=== PATIENT | female | born 1975 | race Two or more races ===

== ENCOUNTER 2016-09-26 14:52 | Emergency (ER) | payer OTHER ==
[~2016-09-26] VITALS: Ht 157.5 cm; Wt 104.3 kg
[~2016-09-26 14:52] MED LIST: DICY20TA30 PO; ONDA4TAB7 PO
[2016-09-26 15:00] VITALS: BP 126/78
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
--- NOTE | 2016-09-26 16:36 | RAD ---
Left foot, 3 views, 09/26/2016: History: Fall, pain No acute fracture or dislocation is identified. There are mild scattered degenerative changes. A small soft tissue defect is noted along the medial aspect of the great toe. IMPRESSION: No acute bony abnormality is detected.
[2016-09-26] MEDS ORDERED: DIPHTH,PERTUSS(ACELL),TET TOX 0.5 ML DISP.SYRIN. VAX IM ONE (16:45)
[2016-09-26] MEDS ORDERED: NEOMY/BACITR/POLYMYXIN OINT PACKET. TP ONE (16:45)
[2016-09-26] MEDS ORDERED: HYDROCODONE/APAP 5/325MG TABLET. PO ONE (16:45)
[2016-09-26 17:30] LABS: BASO % 0 % (0-3); EOS % 1 % (0-3); HEMATOCRIT 43.8 % (36.0-47.0); HEMOGLOBIN 14.3 g/dL (12.0-15.5); LYMPH # 1.5 x10^3/uL (1.0-4.8); LYMPH % 15 % (24-48); MEAN CORPUSCULAR HEMOGLOBIN 29 pg (25-35); MEAN CORPUSCULAR HGB CONC 33 g/dL (31-37); MEAN CORPUSCULAR VOLUME 89 fL (79-100); MONO % 5 % (0-9); NEUT % 79 % (31-73); PLATELET COUNT 244 x10^3/uL (140-400); RED BLOOD COUNT 4.93 x10^6/uL (3.50-5.40); WHITE BLOOD COUNT 9.4 x10^3/uL (4.0-11.0)
[2016-09-26 17:37] LABS: CALCIUM 9.5 mg/dL (8.5-10.1); CREATININE 0.6 mg/dL (0.6-1.0); GFR 109.1; POTASSIUM 3.7 mmol/L (3.5-5.1)
--- NOTE | 2016-09-26 18:30 | RAD ---
PROCEDURE CT scan of the cervical spine without contrast 09/26/2016 HISTORY Neck pain post fall. TECHNIQUE Unenhanced contiguous, 0.625 millimeter axial sections were obtained through the cervical spine. 3 millimeter reconstructed sagittal, axial and coronal images were obtained. One or more of the following individualized dose reduction techniques were utilized for this study: 1. Automated exposure control. 2. Adjustment of the mA and/or kV according to patient size. 3. Use of iterative reconstruction technique. FINDINGS Sagittal and coronal reconstructed images demonstrate very mild lateral curvature of the cervical spine convex to the left. There is slight reversal of normal cervical lordosis. No fracture or subluxation of the cervical vertebrae is seen. IMPRESSION No fracture or subluxation of the cervical vertebrae is seen. Electronically signed by: Brandon Gibson MD (Sep 26, 2016 18:29:50)
--- NOTE | 2016-09-26 18:39 | RAD ---
PROCEDURE CT scan of the chest without contrast 09/26/2016 HISTORY Fall with mid chest pain. TECHNIQUE Unenhanced contiguous, 5 millimeter axial sections were obtained through the chest and upper abdomen. One or more of the following individualized dose reduction techniques were utilized for this study: 1. Automated exposure control. 2. Adjustment of the mA and/or kV according to patient size. 3. Use of iterative reconstruction technique. FINDINGS The heart and thoracic aorta are within normal limits. No mediastinal hematoma is seen. Small calcified hilar and mediastinal lymph nodes are noted. Dependent subsegmental atelectasis is seen involving both lungs. Small calcified granulomas are seen involving both lower lobes. No area of consolidation is seen. No pneumothorax or pleural effusion is noted. Images through the upper abdomen are within normal limits. Degenerative changes are seen involving the thoracic spine. The osseous structures are grossly intact. IMPRESSION No acute abnormality is seen. Electronically signed by: Brandon Gibson MD (Sep 26, 2016 18:38:30)
[2016-09-26] MEDS ORDERED: NAPR375T3 PO (18:54)
[2016-09-26] MEDS ORDERED: HYDR-971 PO (18:54)
--- NOTE | 2016-09-27 06:23 | EKG ---
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
== END 2016-09-26 19:00 | disposition home or self-care (01) ==
LOC: ER 14:52
DX: S90.412A Abrasion, left great toe, initial encounter (principal); S10.91XA Abrasion of unspecified part of neck, initial encounter; R07.89 Other chest pain; W18.39XA Other fall on same level, initial encounter; Y93.89 Activity, other specified; Y92.481 Parking lot as the place of occurrence of the external cause; Y99.8 Other external cause status
CPT/HCPCS: 36415; 71250; 72125; 73630; 80048; 81025; 84484; 85027; 90471; 90715; 93005; 99285-25

== ENCOUNTER 2017-03-18 19:07 | Emergency (ER) | payer OTHER ==
[~2017-03-18] VITALS: Ht 160 cm; Wt 104.3 kg
[~2017-03-18 19:07] MED LIST changes: +HYDR-971 PO; +NAPR375T3 PO
[2017-03-18 20:17] LABS: BILIRUBIN,URINE NEGATIVE (NEG); GLUCOSE,URINE NEGATIVE (NEG); NITRITE,URINE NEGATIVE (NEG); PH,URINE 6.5; PROTEIN,URINE NEGATIVE (NEG-TRACE); UROBILINOGEN,URINE 0.2 mg/dL (0.2 mg/dL)
[2017-03-18 20:22] LABS: BACTERIA,URINE FEW /HPF (0-FEW); NEG OBC UR NEG; POS OBC UR POS; RBC,URINE 0 /HPF (0-2); SQUAMOUS EPITHELIAL CELL,UR MOD /LPF; WBC,URINE OCC /HPF (0-4); YEAST,URINE PRESENT /HPF
[2017-03-18] MEDS ORDERED: IV NORMAL SALINE 1000ML BAG 1,000 ML IV SCH (21:05)
[2017-03-18] MEDS ORDERED: diphenhydrAMINE 50 MG/ML VIAL IVP ONE (21:15)
[2017-03-18] MEDS ORDERED: KETOROLAC TROMETHAMINE 30 MG/ML INJ. IV ONE (21:15)
[2017-03-18] MEDS ORDERED: PROCHLORPERAZINE 10 MG/2 ML VIAL. IV ONE (21:15)
[2017-03-18 21:16] LABS: BASO # 0.1 x10^3/uL (0.0-0.2); BASO % 1 % (0-3); EOS % 2 % (0-3); HEMATOCRIT 41.1 % (36.0-47.0); HEMOGLOBIN 13.6 g/dL (12.0-15.5); LYMPH # 3.2 x10^3/uL (1.0-4.8); LYMPH % 40 % (24-48); MEAN CORPUSCULAR HEMOGLOBIN 29 pg (25-35); MEAN CORPUSCULAR HGB CONC 33 g/dL (31-37); MEAN CORPUSCULAR VOLUME 88 fL (79-100); MONO % 7 % (0-9); NEUT % 50 % (31-73); PLATELET COUNT 243 x10^3/uL (140-400); RED BLOOD COUNT 4.66 x10^6/uL (3.50-5.40); RED CELL DISTRIBUTION WIDTH 13.7 % (11.5-14.5)
[2017-03-18 21:20] VITALS: BP 127/77
[2017-03-18 21:27] LABS: CALCIUM 9.3 mg/dL (8.5-10.1); CREATININE 0.7 mg/dL (0.6-1.0); GFR 91.3; POTASSIUM 3.6 mmol/L (3.5-5.1)
[2017-03-18 21:33] LABS: ALBUMIN 3.4 g/dL (3.4-5.0); ALBUMIN/GLOBULIN RATIO 0.8 (1.0-1.7); TOTAL BILIRUBIN 0.2 mg/dL (0.2-1.0); TOTAL PROTEIN 7.6 g/dL (6.4-8.2)
[2017-03-18] MEDS ORDERED: CYCL10TA2 PO (22:55)
[2017-03-18] MEDS ORDERED: NAPR500T PO (22:55)
--- NOTE | 2017-03-18 22:55 | PHYS DOC ---
Past Medical History Past Medical History: No Pertinent History Past Surgical History: No Surgical History Alcohol Use: None Drug Use: None Adult General Chief Complaint Chief Complaint: HEADACHE HPI HPI Patient is a 41 year old female who presents with complaint of headache. Patient states that she is had headaches for the past 3 days. Patient states that the symptoms started in her forehead and radiate back towards the top of her neck. Patient denies any associated fever or vision changes with her symptoms. The patient states she took Tylenol with no relief in symptoms. Patient also states that she has had increasing fatigue. Patient denies any known medical problems and is not currently on any medications. Patient denies nausea, vomiting, shortness of breath, or acute chest pain. Patient rates her pain as 10 out of 10. Review of Systems Review of Systems Constitutional: Denies fever or chills [] Eyes: Denies change in visual acuity, redness, or eye pain [] HENT: Denies nasal congestion or sore throat [] Respiratory: Denies cough or shortness of breath [] Cardiovascular: Denies chest pain or edema [] GI: Denies abdominal pain, nausea, vomiting, bloody stools or diarrhea [] : Denies dysuria or hematuria [] Musculoskeletal: Neck pain [] Integument: Denies rash or skin lesions [] Neurologic: Headache, denies focal weakness or sensory changes [] Current Medications Current Medications Current Medications Medications (Trade) Dose Ordered Sig/Miguel Start Time Stop Time Status Last Admin Dose Admin Diphenhydramine HCl (Benadryl) 25 mg 1X ONCE 03/18/17 21:15 03/18/17 21:16 DC 03/18/17 21:21 25 MG Ketorolac Tromethamine (Toradol) 30 mg 1X ONCE 03/18/17 21:15 03/18/17 21:16 DC 03/18/17 21:21 30 MG Prochlorperazine Edisylate (Compazine) 10 mg 1X ONCE 03/18/17 21:15 03/18/17 21:16 DC 03/18/17 21:21 10 MG Sodium Chloride 1,000 ml @ 1,000 mls/hr Q1H 03/18/17 21:05 03/18/17 22:04 DC 03/18/17 21:20 1,000 MLS/HR Allergies Allergies Allergies Coded Allergies Type Severity Reaction Last Updated Verified No Known Drug Allergies 03/26/14 No Physical Exam Physical Exam Constitutional: Alert, afebrile, appears in mild discomfort. [] HENT: Normocephalic, atraumatic, bilateral external ears normal, oropharynx moist, no oral exudates, nose normal. [] Eyes: PERRLA, EOMI, conjunctiva normal, no discharge. [] Neck: No midline tenderness, mild bilateral paraspinous muscle tenderness to palpation, full range of motion present, negative Kernig, negative Brudzinski. [ ] Cardiovascular:Heart rate regular rhythm, no murmur [] Lungs & Thorax: Bilateral breath sounds clear to auscultation [] Abdomen: Bowel sounds normal, soft, no tenderness, no masses, no pulsatile masses. [] Skin: Warm, dry, no erythema, no rash. [] Back: No tenderness, no CVA tenderness. [] Extremities: No tenderness, no cyanosis, no clubbing, ROM intact, no edema. [] Neurologic: Alert and oriented X 3, normal motor function, normal sensory function, no focal deficits noted. [] Current Patient Data Vital Signs Vital Signs Date Time Temp Pulse Resp B/P (MAP) Pulse Ox O2 Delivery O2 Flow Rate FiO2 03/18/17 19:40 98.1 97 20 121/73 (89) 98 Room Air 98.1 Lab Values Laboratory Tests Test 03/18/17 19:02 03/18/17 19:45 03/18/17 20:15 POC Urine HCG, Qualitative Hcg negative (Negative) Urine Collection Type Unknown Urine Color Yellow Urine Clarity Clear Urine pH 6.5 Urine Specific [place] 1.010 Urine Protein Negative mg/dL (NEG-TRACE) Urine Glucose (UA) Negative mg/dL (NEG) Urine Ketones (Stick) Negative mg/dL (NEG) Urine Blood Negative (NEG) Urine Nitrite Negative (NEG) Urine Bilirubin Negative (NEG) Urine Urobilinogen Dipstick 0.2 mg/dL (0.2 mg/dL) Urine Leukocyte Esterase Trace (NEG) Urine RBC 0 /HPF (0-2) Urine WBC Occ /HPF (0-4) Urine Squamous Epithelial Cells Mod /LPF Urine Bacteria Few /HPF (0-FEW) Urine Yeast Present /HPF Urine Test Negative (NEG) White Blood Count 8.0 x10^3/uL (4.0-11.0) Red Blood Count 4.66 x10^6/uL (3.50-5.40) Hemoglobin 13.6 g/dL (12.0-15.5) Hematocrit 41.1 % (36.0-47.0) Mean Corpuscular Volume 88 fL (79-100) Mean Corpuscular Hemoglobin 29 pg (25-35) Mean Corpuscular Hemoglobin Concent 33 g/dL (31-37) Red Cell Distribution Width 13.7 % (11.5-14.5) Platelet Count 243 x10^3/uL (140-400) Neutrophils (%) (Auto) 50 % (31-73) Lymphocytes (%) (Auto) 40 % (24-48) Monocytes (%) (Auto) 7 % (0-9) Eosinophils (%) (Auto) 2 % (0-3) Basophils (%) (Auto) 1 % (0-3) Neutrophils # (Auto) 4.0 x10^3uL (1.8-7.7) Lymphocytes # (Auto) 3.2 x10^3/uL (1.0-4.8) Monocytes # (Auto) 0.6 x10^3/uL (0.0-1.1) Eosinophils # (Auto) 0.2 x10^3/uL (0.0-0.7) Basophils # (Auto) 0.1 x10^3/uL (0.0-0.2) Sodium Level 140 mmol/L (136-145) Potassium Level 3.6 mmol/L (3.5-5.1) Chloride Level 102 mmol/L (98-107) Carbon Dioxide Level 30 mmol/L (21-32) Anion Gap 8 (6-14) Blood Urea Nitrogen 12 mg/dL (7-20) Creatinine 0.7 mg/dL (0.6-1.0) Estimated GFR (Cockcroft-Gault) 91.3 BUN/Creatinine Ratio 17 (6-20) Glucose Level 134 mg/dL (70-99) H Calcium Level 9.3 mg/dL (8.5-10.1) Total Bilirubin 0.2 mg/dL (0.2-1.0) Aspartate Amino Transferase (AST) 15 U/L (15-37) Alanine Aminotransferase (ALT) 23 U/L (14-59) Alkaline Phosphatase 95 U/L (46-116) Total Protein 7.6 g/dL (6.4-8.2) Albumin 3.4 g/dL (3.4-5.0) Albumin/Globulin Ratio 0.8 (1.0-1.7) L Laboratory Tests 03/18/17 20:15 Laboratory Tests 03/18/17 20:15 EKG EKG Not performed [] Radiology/Procedures Radiology/Procedures Not performed [] Course & Med Decision Making Course & Med Decision Making Pertinent Labs and Imaging studies reviewed. (See chart for details) Patient was given IV fluids, Benadryl, Compazine, and Toradol in the emergency department. On reevaluation, patient states her symptoms have significantly improved at this time. The patient will be prescribed Flexeril and naproxen for continued treatment of symptoms. The patient's symptoms appear consistent with tension type headache. The patient has an appointment on March 30 with her primary physician. I recommended that she keep this appointment as scheduled. Recommended return emergency department for any worsening symptoms. Patient voiced understanding and in agreement with treatment plan. Dragon Disclaimer Dragon Disclaimer This electronic medical record was generated, in whole or in part, using a voice recognition dictation system. Departure Departure Impression: Primary Impression: Headache Disposition: 01 HOME, SELF-CARE Condition: IMPROVED Referrals: UNKNOWN PCP NAME (PCP) Patient Instructions: General Headache Without Cause Additional Instructions: Follow-up with your primary doctor on March 30 as scheduled. Return to emergency department for any worsening symptoms. Scripts Cyclobenzaprine Hcl (CYCLOBENZAPRINE HCL) 10 Mg Tablet 1 TAB PO TID Y for MUSCLE PAIN, #30 TAB Prov: CRYSTAL GAMINO MD 03/18/17 Naproxen (NAPROSYN) 500 Mg Tablet 1 TAB PO BID, #20 TAB 0 Refills Prov: CRYSTAL GAMINO MD 03/18/17 Problem Qualifiers Primary Impression: Headache Headache type: tension-type Headache chronicity pattern: acute headache Intractability: not intractable Qualified Codes: G44.209 - Tension-type headache, unspecified, not intractable CRYSTAL GAMINO MD Mar 18, 2017 22:55
== END 2017-03-18 23:21 | disposition home or self-care (01) ==
LOC: ER 19:07
DX: R51 Headache (principal)
CPT/HCPCS: 36415; 80053; 81001; 81025; 85025; 87086; 96361; 96374; 96375; 99284; J0780; J1200; J1885; J7030